=== PATIENT | female | born 1985 | race Hispanic/Latino ===

== ENCOUNTER 2025-01-25 11:14 | Emergency (ER) | payer MEDICAID, OTHER ==
[2025-01-25] MEDS ORDERED: Naproxen 500 MG TAB ONE (12:01)
== END 2025-01-25 13:10 | disposition home or self-care (01) ==
LOC: NAV ERS 11:14
DX: S83.512A Sprain of anterior cruciate ligament of left knee, initial encounter (principal); F17.210 Nicotine dependence, cigarettes, uncomplicated; X50.1XXA Overexertion from prolonged static or awkward postures, initial encounter; Y93.68 Activity, volleyball (beach) (court)
CPT/HCPCS: 99283